=== PATIENT | female | born 1980 | race Caucasian/White ===

== ENCOUNTER 2016-12-05 11:14 | Emergency (ER) | payer BC ==
--- NOTE | ~2016-12-05 | CT2 ---
[facility] A Service [facility] RADIOLOGY TEXT RESULTS PATIENT: JEFFERY BROWN LOCATION: SED : [birth year] UNIT #: [id number] AGE: [address]: Jose Amanda MD SEX: F ORDER DR: [id number] [address] [address] [id number] E MR#: [id number] Acc #: [id number] NAME: JEFFERY BROWN. : 1980 SEX: F STUDY DATE/TIME: 12/05/2016 13:17 UNIT: SED ROOM: STUDY DESCRIPTION: CT Abd and Pelv W Cont Attending Physician: Jose Amanda M.D. Ordering Physician: Jose Amanda M.D. Primary Care Physician: Lilliam Douglas A.P.R.N. MEDICAL IMAGING REPORT This report is preliminary unless electronic signature is present. EXAM CT abdomen and pelvis with contrast; 12/05/2016, 1317 hours. CLINICAL HISTORY 36-year-old with bilateral flank pain for 1 month. History of prior bone cancer. COMPARISON CT abdomen and pelvis, 01/13/2014. TECHNIQUE Dynamic helical CT images were obtained from the lung bases through the pubic symphysis with intravenous contrast only. Sagittal and coronal reconstructions were performed. Contrast was Isovue-370 100 mL IV. Total exam DLP 458 mGy-cm. This CT exam was performed with one or more of the following radiation dose reduction techniques: automatic exposure control, adjustment of mA and/or kV according to patient size, and iterative reconstruction. FINDINGS Images through the lung bases demonstrate minimal emphysematous change at the right base. There is no nodule, infiltrate or effusion. The distal esophagus is normal. Images through the abdomen demonstrate a normal appearance to the liver, spleen, pancreas, gallbladder and bile ducts. The adrenal glands are normal. The kidneys enhance normally without evidence of mass, stone or obstruction. There is no ureterectasis or ureteral calculus seen. The bladder is normal. Unopacified stomach is normal. There is no small bowel distension or STS. [facility] A Service [facility] RADIOLOGY TEXT RESULTS PATIENT: JEFFERY BROWN LOCATION: [facility] [place] [birth year] UNIT #: [id number] AGE: [address]: Jose Amanda MD SEX: F ORDER DR: small bowel wall thickening. The cecum sits low in the right lower quadrant. It is difficult to discriminate the appendix but there are no sign of appendicitis. There is no colonic distension or colonic wall thickening. CT pelvis demonstrates surgical absence of the uterus. It is difficult to discriminate the right ovary. Left ovary, I believe is present and normal. Previous left ovarian cyst no longer seen. IMPRESSION 1. No acute findings in the abdomen or pelvis. 2. It is difficult to discriminate the appendix but no evidence of appendicitis is seen. 3. No renal or ureteral calculi. 4. The gallbladder is somewhat contracted. No gallstones are seen. 5. The uterus is surgically absent. I believe that these the left ovary is present. Previous left ovarian cyst seen 01/13/2014, has resolved. There is no adnexal mass or free fluid. 6. Bones appear unremarkable. Dictated by... Sandra David M.D. THIS IS AN ELECTRONICALLY VERIFIED REPORT Sandra David M.D. at 12/05/2016 7:19 PM VAL/teodoro TD: 12/05/2016 16:00 JOB #: [id number] MEDICAL IMAGING REPORT Page 1 of 1
[~2016-12-05 11:14] MED LIST: AMITRYPTYLINE PO; BACTRIM DS TABL1 TA2; CIPRO PO; CLEOCIN PO; DICLOFENAC PO; HYDROCODON-ACE1 EAC7 PO; LAMICTAL PO; MIGRAINE MED; NORCO 5/325 TAB1 TAB PO; NORCO1 TAB 10/3 PO; PAXIL; PYRIDIUM PO; PYRIDIUM100 MG; SLEEP AID50 MG; ULTRAM PO; VOLTAREN75 MG PO; ZANTAC; ZOFRAN ODT4 MG/UDTAB PO; ZOLOFT PO; [UNRECOGNIZED DRUG - REMARK]
[2016-12-05 11:34] LABS: URINE SOURCE CLEAN CATCH
[2016-12-05 11:36] LABS: URINE APPEARANCE CLEAR; URINE BILIRUBIN NEG (NEG); URINE BLOOD NEG (NEG); URINE COLOR YELLOW; URINE GLUCOSE NEG (NORM); URINE KETONE NEG (NEG); URINE LEUKOCYTE ESTERASE NEG (NEG); URINE NITRATE NEG (NEG); URINE PH 5.5 (5-8); URINE PROTEIN NEG (NEG); URINE UROBILINOGEN 0.2 MG/DL (NORM)
[2016-12-05 11:37] LABS: MICRO INDICATED? NO
[2016-12-05 12:28] LABS: BASOPHIL% 0.5 % (0-2.5); DIFF IND NO; EOSINOPHIL# 0.1 X10e3 (0-0.7); EOSINOPHIL% 1.1 % (0.0-7.0); HEMATOCRIT 39.1 % (35.0-45.0); HEMOGLOBIN 13.4 gm/dL (12.0-16.0); LYMPHOCYTE# 1.7 X10e3 (1.0-3.5); LYMPHOCYTE% 31.7 % (17.0-45.0); MEAN CELL VOLUME 95.2 FL (83-96); MEAN CORPUSCULAR HEMOGLOBIN 32.6 PG (28-34); MEAN CORPUSCULAR HGB CONC 34.3 g/dL (30-36); MEAN PLATELET VOLUME 8.8 FL (6.5-11.5); MONOCYTE# 0.4 X10e3 (0-1.0); MONOCYTE% 8.1 % (3.0-12.0); NEUTROPHIL# 3.2 X10e3 (1.5-7.1); NEUTROPHIL% 58.6 % (40-75); PLATELET COUNT 179 X10e3 (140-420); RED BLOOD COUNT 4.11 X10e (3.90-5.30); RED CELL DISTRIBUTION WIDTH 12.7 % (11.0-15.5); WHITE BLOOD COUNT 5.4 X10e3 (4.0-10.5)
[2016-12-05 12:53] LABS: ALBUMIN SERUM 4.2 g/dL (3.5-5.0); BILIRUBIN,TOTAL 0.7 mg/dL (0.2-2.0); BUN/CREATININE RATIO 15.71; CALCIUM SERUM 9.3 mg/dL (8.4-10.2); CREATININE SERUM 0.7 mg/dL (0.6-1.4); GLOM FILT RATE Estimated 112.3 mL/min (>60); POTASSIUM 3.8 mmol/L (3.5-5.1); PROTEIN TOTAL SERUM 6.8 g/dL (6.0-8.3)
== END 2016-12-05 14:22 | disposition home or self-care (01) ==
LOC: SED 11:14
PROVIDERS: Emergency Medicine
DX: R10.9 Unspecified abdominal pain (principal); F17.210 Nicotine dependence, cigarettes, uncomplicated; Z88.5 Allergy status to narcotic agent; Z88.8 Allergy status to other drugs, medicaments and biological substances; Z79.899 Other long term (current) drug therapy
CPT/HCPCS: 36415; 74177; 80053; 81003; 84703; 85025; 99284; J0500; Q9967